=== PATIENT | female | born 1950 | race African-American/Black ===

== ENCOUNTER 2020-03-15 22:02 | Emergency (ER) | payer MEDICARE | END 2020-03-15 23:01 | disposition home or self-care (01) | LOC: ERS 22:02 | DX: R11.2 Nausea with vomiting, unspecified (principal); K21.9 Gastro-esophageal reflux disease without esophagitis; I10 Essential (primary) hypertension; F32.9 Major depressive disorder, single episode, unspecified; F17.210 Nicotine dependence, cigarettes, uncomplicated | CPT/HCPCS: 99284 ==

== ENCOUNTER 2022-02-18 12:45 | Observation (INO) | payer MEDICARE ==
[2022-02-18 16:04] VITALS: BMI 22.1
[2022-02-18] MEDS ORDERED: Acetaminophen 325 MG TAB PO PRN (17:27)
[2022-02-18] MEDS ORDERED: hydrALAZINE 20 MG/ML VIAL SLOW IVP PRN (17:27)
[2022-02-18 18:40] LABS: Troponin I 0.066 ng/mL (< 0.028)
[2022-02-18] MEDS ORDERED: Mirtazapine 15 MG Soltab PO SCH (21:00)
[2022-02-18] MEDS ORDERED: Simvastatin 5 MG TAB PO SCH (21:00)
[2022-02-18 21:02] LABS: Troponin I 0.067 ng/mL (< 0.028)
[2022-02-19] MEDS ORDERED: Ondansetron PF 4 MG/2 ML Vial IVP PRN (01:34)
[2022-02-19 05:47] LABS: #Lymphocytes 1.4 thou/uL (1.20-3.40); #Monocytes 0.4 thou/uL (0.11-0.59); #Neutrophils 4.4 thou/uL (1.40-6.50); %Basophils 0.7 % (0.0-1.0); %Eosinophils 0.4 % (0.0-10.0); %Lymphocytes 22.9 % (21.0-51.0); %Monocytes 6.4 % (0.0-10.0); %Neutrophils 69.5 % (42.0-75.0); Hemoglobin 12.3 g/dL (12.0-16.0); Mean Corpuscular HGB CONC 32.1 g/dL (32.0-36.0); Mean Corpuscular Hemoglobin 30.7 pg (27.0-31.0); Mean Corpuscular Volume 95.8 fL (78.0-98.0); Mean Platelet Volume 6.3 fL (7.4-10.4); Platelet Count 380 thou/uL (130-400); RBC Distribution Width 15.3 % (11.5-14.5); Red Blood Cell (RBC) Count 3.99 mill/uL (4.20-5.40); White Blood Cell (WBC) Count 6.3 thou/uL (4.8-10.8)
[2022-02-19 06:16] LABS: Anion Gap 12 mmol/L (10-20); BUN (Urea Nitrogen) 12 mg/dL (9.8-20.1); Calc. Creatinine Clearance 65 mL/min (70-130); Calcium 8.7 mg/dL (7.8-10.44); Carbon Dioxide 30 mmol/L (23-31); Cardiac Risk 3.3 (Less than 4.5); Chloride 101 mmol/L (98-107); Cholesterol 178 mg/dl (< 200 Desired); Glucose 86 mg/dL (83-110); HDL Cholesterol 54 mg/dL (>60 Neg Risk); LDL Cholesterol, Calculated 109 mg/dL; Sodium 140 mmol/L (136-145); Triglycerides 73 mg/dL (Less than 150)
[2022-02-19 06:22] LABS: Potassium 2.8 mmol/L (3.5-5.1)
[2022-02-19] MEDS: Potassium Chloride 20 MEQ TAB PO SCH ×2 (06:36→12:41)
[2022-02-19] MEDS ORDERED: Electrolyte Replacement Protocol FS PRN (06:45)
[2022-02-19] MEDS ORDERED: Atenolol 25 MG TAB PO SCH (09:00)
[2022-02-19] MEDS ORDERED: Aspirin 81 mg Enteric Coated Tablet PO SCH (09:00)
[2022-02-19] MEDS ORDERED: Enoxaparin Sodium 40 MG/0.4 ML SYRINGE SC SCH (09:00)
[2022-02-19 12:20] VITALS: BP 154/70; TEMP 97.8
[2022-02-19] MEDS ORDERED: Potassium Bicarbonate/Cit Ac 20 MEQ TAB PO SCH (13:00)
[2022-02-19] MEDS ORDERED: Regadenoson 0.4 MG/5 ML SYRINGE ONE (13:32)
[2022-02-19 14:39] LABS: Anion Gap 11 mmol/L (10-20); BUN (Urea Nitrogen) 12 mg/dL (9.8-20.1); Calc. Creatinine Clearance 63 mL/min (70-130); Calcium 8.8 mg/dL (7.8-10.44); Carbon Dioxide 31 mmol/L (23-31); Chloride 102 mmol/L (98-107); Glucose 82 mg/dL (83-110); Potassium 3.4 mmol/L (3.5-5.1); Sodium 141 mmol/L (136-145)
[2022-02-19] MEDS ORDERED: Sodium Chloride 0.9% 1,000 ML IV SCH (15:00)
[2022-02-19] MEDS ORDERED: Potassium Chloride 20 MEQ TAB PO SCH (15:15)
[2022-02-19 15:41] LABS: Magnesium 1.7 mg/dL (1.6-2.6)
== END 2022-02-19 16:38 | disposition home health service (06) ==
LOC: 2SW 12:45
PROVIDERS: ADMIT Internal Medicine; ATTEND Internal Medicine
DX: R55 Syncope and collapse (principal); K21.9 Gastro-esophageal reflux disease without esophagitis; E78.2 Mixed hyperlipidemia; I73.9 Peripheral vascular disease, unspecified; I11.9 Hypertensive heart disease without heart failure; I08.8 Other rheumatic multiple valve diseases; Z66 Do not resuscitate; Z87.891 Personal history of nicotine dependence; Z79.899 Other long term (current) drug therapy
CPT/HCPCS: 78452; 80048 ×2; 80061; 83735; 84484; 85025; 93017; 93306; 93923; A9500; 36415; 96372; 96374; 96375; G0378; J0360; J1650; J2405; J2785; J7050

== ENCOUNTER 2023-03-05 12:50 | Inpatient (IN) | payer MEDICARE ==
[2023-03-05] MEDS ORDERED: Ondansetron ODT 4 MG TAB PO PRN (14:38)
[2023-03-05] MEDS ORDERED: hydrALAZINE 20 MG/ML VIAL SLOW IVP PRN (14:45)
[2023-03-05] MEDS ORDERED: NIFEdipine XL 30 MG TAB PO SCH (15:00)
[2023-03-05] MEDS: Sodium Chloride 0.9% 1,000 ML IV SCH (15:37)
[2023-03-05 16:33] VITALS: BMI 25.1
[2023-03-05 17:51] LABS: CKMB 3.5 ng/mL (0-6.6)
[2023-03-05] MEDS: Simvastatin 5 MG TAB PO SCH ×2 (20:35→20:37)
[2023-03-05] MEDS: Mirtazapine 15 MG Soltab PO SCH ×2 (20:35→20:37)
[2023-03-06] MEDS ORDERED: Nitroglycerin 2% Ointment 1 INCH/1 GM Packet TOP SCH (00:30)
[2023-03-06] MEDS: Sodium Chloride 0.9% 1,000 ML IV SCH ×3 (04:34→18:14)
[2023-03-06 08:27] LABS: #Eosinphils 0.1 thou/uL (0.0-0.7); #Monocytes 0.6 thou/uL (0.11-0.59); #Neutrophils 3.5 thou/uL (1.40-6.50); %Basophils 0.5 % (0.0-1.0); %Eosinophils 0.9 % (0.0-10.0); %Lymphocytes 26.3 % (21.0-51.0); %Monocytes 10.2 % (0.0-10.0); %Neutrophils 61.9 % (42.0-75.0); Hemoglobin 12.7 g/dL (12.0-16.0); Mean Corpuscular Hemoglobin 30.5 pg (27.0-31.0); Mean Corpuscular Volume 89.4 fl (78.0-98.0); Mean Platelet Volume 9.2 fL (7.4-10.4); Platelet Count 372 10x3/uL (130-400); RBC Distribution Width 14.8 % (11.5-14.5); Red Blood Cell (RBC) Count 4.17 mill/uL (4.20-5.40); White Blood Cell (WBC) Count 5.7 10x3/uL (4.8-10.8)
[2023-03-06 08:53] LABS: CK (CPK) 218 U/L (29-168); Magnesium 1.8 mg/dL (1.6-2.6)
[2023-03-06] MEDS: NIFEdipine XL 30 MG TAB PO SCH (09:02)
[2023-03-06] MEDS: Aspirin 81 mg Enteric Coated Tablet PO SCH (09:02)
[2023-03-06 09:22] LABS: Anion Gap 15 mmol/L (10-20); BUN (Urea Nitrogen) 15 mg/dL (9.8-20.1); Calc. Creatinine Clearance 77 mL/min (70-130); Carbon Dioxide 21 mmol/L (23-31); Chloride 104 mmol/L (98-107); Estimated GFR 93; Glucose 73 mg/dL (83-110); Potassium 3.8 mmol/L (3.5-5.1); Sodium 136 mmol/L (136-145)
[2023-03-06 09:50] LABS: CKMB 2.3 ng/mL (0-6.6)
[2023-03-06] MEDS: cefTRIAXone\\ROCEPHIN 1 GM in Sodium Chloride 0.9% 100 ML IVPB SCH (11:16)
[2023-03-06] MEDS: Ondansetron PF 4 MG/2 ML Vial IVP PRN (11:16)
[2023-03-06 17:16] LABS: Troponin I 0.067 ng/mL (< 0.028)
[2023-03-06] MEDS: Simvastatin 5 MG TAB PO SCH (20:18)
[2023-03-06] MEDS: Mirtazapine 15 MG Soltab PO SCH (20:18)
[2023-03-06] MEDS: Acetaminophen 325 MG TAB PO PRN (20:18)
[2023-03-07] MEDS: Sodium Chloride 0.9% 1,000 ML IV SCH ×2 (05:37→17:48)
[2023-03-07 05:46] LABS: #Eosinphils 0.1 thou/uL (0.0-0.7); #Monocytes 0.5 thou/uL (0.11-0.59); #Neutrophils 2.8 thou/uL (1.40-6.50); %Basophils 0.6 % (0.0-1.0); %Eosinophils 1.1 % (0.0-10.0); %Lymphocytes 29.8 % (21.0-51.0); %Monocytes 9.8 % (0.0-10.0); %Neutrophils 58.5 % (42.0-75.0); Hemoglobin 12.7 g/dL (12.0-16.0); Mean Corpuscular HGB CONC 34.2 g/dL (32.0-36.0); Mean Corpuscular Hemoglobin 30.3 pg (27.0-31.0); Mean Corpuscular Volume 88.5 fl (78.0-98.0); Mean Platelet Volume 8.8 fL (7.4-10.4); Platelet Count 383 10x3/uL (130-400); RBC Distribution Width 14.6 % (11.5-14.5); Red Blood Cell (RBC) Count 4.19 mill/uL (4.20-5.40); White Blood Cell (WBC) Count 4.7 10x3/uL (4.8-10.8)
[2023-03-07 06:13] LABS: Anion Gap 14 mmol/L (10-20); BUN (Urea Nitrogen) 7 mg/dL (9.8-20.1); CK (CPK) 197 U/L (29-168); Calc. Creatinine Clearance 85 mL/min (70-130); Carbon Dioxide 21 mmol/L (23-31); Chloride 102 mmol/L (98-107); Estimated GFR 95; Glucose 63 mg/dL (83-110); Potassium 3.3 mmol/L (3.5-5.1); Sodium 134 mmol/L (136-145)
[2023-03-07] MEDS ORDERED: Electrolyte Replacement Protocol 1 EACH FS PRN (08:04)
[2023-03-07] MEDS ORDERED: Electrolyte Replacement Protocol FS PRN (08:30)
[2023-03-07] MEDS ORDERED: Potassium Chloride 20 MEQ TAB PO SCH ×2 (08:30→13:45)
[2023-03-07] MEDS: NIFEdipine XL 30 MG TAB PO SCH (09:15)
[2023-03-07] MEDS: Aspirin 81 mg Enteric Coated Tablet PO SCH (09:15)
[2023-03-07 10:02] LABS: Magnesium 1.8 mg/dL (1.6-2.6)
[2023-03-07] MEDS ORDERED: Magnesium 2 GM/50 ML(in water) 2 GM in Premix Bag 1 BAG IVPB SCH (11:30)
[2023-03-07 13:03] LABS: Potassium 3.3 mmol/L (3.5-5.1)
[2023-03-07] MEDS: cefTRIAXone\\ROCEPHIN 1 GM in Sodium Chloride 0.9% 100 ML IVPB SCH (13:31)
[2023-03-07] MEDS ORDERED: Polyethylene Glycol 3350 17 GM Packet PO PRN (16:30)
[2023-03-07] MEDS: Simvastatin 5 MG TAB PO SCH (20:50)
[2023-03-07] MEDS: Mirtazapine 15 MG Soltab PO SCH (20:50)
[2023-03-08] MEDS: Sodium Chloride 0.9% 1,000 ML IV SCH ×2 (02:57→10:57)
[2023-03-08 05:59] LABS: #Eosinphils 0.1 thou/uL (0.0-0.7); #Monocytes 0.4 thou/uL (0.11-0.59); #Neutrophils 2.4 thou/uL (1.40-6.50); %Basophils 0.9 % (0.0-1.0); %Eosinophils 2.4 % (0.0-10.0); %Lymphocytes 36.4 % (21.0-51.0); %Monocytes 8.4 % (0.0-10.0); %Neutrophils 51.9 % (42.0-75.0); Hemoglobin 12.4 g/dL (12.0-16.0); Mean Corpuscular HGB CONC 34.1 g/dL (32.0-36.0); Mean Corpuscular Volume 88.1 fl (78.0-98.0); Platelet Count 407 10x3/uL (130-400); RBC Distribution Width 14.5 % (11.5-14.5); Red Blood Cell (RBC) Count 4.13 mill/uL (4.20-5.40); White Blood Cell (WBC) Count 4.6 10x3/uL (4.8-10.8)
[2023-03-08 06:23] LABS: Anion Gap 15 mmol/L (10-20); BUN (Urea Nitrogen) 6 mg/dL (9.8-20.1); Calc. Creatinine Clearance 83 mL/min (70-130); Calcium 8.7 mg/dL (7.8-10.44); Carbon Dioxide 20 mmol/L (23-31); Chloride 103 mmol/L (98-107); Estimated GFR 95; Magnesium 1.9 mg/dL (1.6-2.6); Potassium 4.1 mmol/L (3.5-5.1); Sodium 134 mmol/L (136-145)
[2023-03-08 06:25] LABS: Glucose 53 mg/dL (83-110)
[2023-03-08] MEDS ORDERED: Glucagon 1 MG/ML KIT IM PRN (06:32)
[2023-03-08] MEDS ORDERED: Dextrose 5% in Water 1,000 ML IV PRN (06:32)
[2023-03-08] MEDS ORDERED: Dextrose 50% Abboject 50 ML SYRINGE SLOW IVP PRN (06:32)
[2023-03-08] MEDS ORDERED: Magnesium 2 GM/50 ML(in water) 2 GM in Premix Bag 1 BAG IVPB SCH (08:00)
[2023-03-08] MEDS ORDERED: Piperacillin/Tazobactam 3.375 GM in Sodium Chloride 0.9% 100 ML IVPB SCH ×2 (08:45→10:00)
[2023-03-08] MEDS ORDERED: Polyethylene Glycol 3350 17 GM Packet PO PRN (08:46)
[2023-03-08] MEDS: NIFEdipine XL 30 MG TAB PO SCH (08:55)
[2023-03-08] MEDS: Aspirin 81 mg Enteric Coated Tablet PO SCH (08:55)
[2023-03-08] MEDS: Piperacillin/Tazobactam 3.375 GM in Sodium Chloride 0.9% 100 ML IVPB SCH ×2 (14:57→21:26)
[2023-03-08] MEDS: Mirtazapine 15 MG Soltab PO SCH (20:52)
[2023-03-08] MEDS: Simvastatin 5 MG TAB PO SCH (20:52)
[2023-03-09] MEDS: Acetaminophen 325 MG TAB PO PRN (04:16)
[2023-03-09] MEDS: Ondansetron PF 4 MG/2 ML Vial IVP PRN (04:16)
[2023-03-09] MEDS: Piperacillin/Tazobactam 3.375 GM in Sodium Chloride 0.9% 100 ML IVPB SCH ×2 (05:24→13:10)
[2023-03-09 05:32] LABS: #Eosinphils 0.2 thou/uL (0.0-0.7); #Monocytes 0.4 thou/uL (0.11-0.59); #Neutrophils 3.4 thou/uL (1.40-6.50); %Basophils 0.5 % (0.0-1.0); %Monocytes 6.2 % (0.0-10.0); %Neutrophils 59.9 % (42.0-75.0); Mean Corpuscular HGB CONC 33.1 g/dL (32.0-36.0); Mean Corpuscular Hemoglobin 29.6 pg (27.0-31.0); Mean Corpuscular Volume 89.4 fl (78.0-98.0); Mean Platelet Volume 8.7 fL (7.4-10.4); Platelet Count 382 10x3/uL (130-400); RBC Distribution Width 14.5 % (11.5-14.5); Red Blood Cell (RBC) Count 4.05 mill/uL (4.20-5.40); White Blood Cell (WBC) Count 5.6 10x3/uL (4.8-10.8)
[2023-03-09 05:55] LABS: Anion Gap 13 mmol/L (10-20); BUN (Urea Nitrogen) 9 mg/dL (9.8-20.1); Calc. Creatinine Clearance 67 mL/min (70-130); Calcium 8.6 mg/dL (7.8-10.44); Carbon Dioxide 24 mmol/L (23-31); Chloride 102 mmol/L (98-107); Estimated GFR 87; Glucose 105 mg/dL (83-110); Potassium 3.6 mmol/L (3.5-5.1); Sodium 135 mmol/L (136-145)
[2023-03-09] MEDS ORDERED: traMADol HCl 50 MG TAB PO PRN (09:20)
[2023-03-09] MEDS: NIFEdipine XL 30 MG TAB PO SCH (09:40)
[2023-03-09] MEDS: Aspirin 81 mg Enteric Coated Tablet PO SCH (09:41)
[2023-03-09] MEDS: Sodium Chloride 0.9% 1,000 ML IV SCH (13:10)
[2023-03-09 15:52] VITALS: TEMP 98.2
[2023-03-09 16:46] VITALS: BP 155/75
== END 2023-03-09 19:23 | DRG 565 ==
LOC: NEURO 13:40 → OBSVTOIN 14:47
PROVIDERS: ADMIT Internal Medicine; ATTEND Internal Medicine
PROC: 02HV33Z Insertion of Infusion Device into Superior Vena Cava, Percutaneous Approach (ICD-10-PCS; principal; 2023-03-09)
PROC: B5181ZA Fluoroscopy of Superior Vena Cava using Low Osmolar Contrast, Guidance (ICD-10-PCS; 2023-03-09)
PROC: B548ZZA Ultrasonography of Superior Vena Cava, Guidance (ICD-10-PCS; 2023-03-09)
DX: T79.6XXA Traumatic ischemia of muscle, initial encounter (principal); N39.0 Urinary tract infection, site not specified; Z16.24 Resistance to multiple antibiotics; S46.011A Strain of muscle(s) and tendon(s) of the rotator cuff of right shoulder, initial encounter; W06.XXXA Fall from bed, initial encounter; Y92.003 Bedroom of unspecified non-institutional (private) residence as the place of occurrence of the external cause; M19.011 Primary osteoarthritis, right shoulder; K21.9 Gastro-esophageal reflux disease without esophagitis; B96.20 Unspecified Escherichia coli [E. coli] as the cause of diseases classified elsewhere; I10 Essential (primary) hypertension; E78.5 Hyperlipidemia, unspecified; R29.6 Repeated falls; F17.290 Nicotine dependence, other tobacco product, uncomplicated; R77.8 Other specified abnormalities of plasma proteins; E87.6 Hypokalemia; Z91.040 Latex allergy status; Z91.81 History of falling; Z91.199 Patient's noncompliance with other medical treatment and regimen due to unspecified reason; Z79.899 Other long term (current) drug therapy; Z79.82 Long term (current) use of aspirin
CPT/HCPCS: 36415; 36416; 36569; 80048; 82550; 82553; 83735; 83880; 85025; 87077; 87086; 87186; C1751; J0360; J0696; J1650; J2405; J2543; J3475; J3490; J7050

== ENCOUNTER 2023-03-23 14:43 | Inpatient (IN) | payer MEDICARE ==
[2023-03-23 16:22] LABS: Hemoglobin 13.9 g/dL (12.0-16.0); Mean Corpuscular HGB CONC 33.6 g/dL (32.0-36.0); Mean Corpuscular Volume 89.2 fl (78.0-98.0); Platelet Count 464 10x3/uL (130-400); RBC Distribution Width 15.1 % (11.5-14.5); Red Blood Cell (RBC) Count 4.64 mill/uL (4.20-5.40)
[2023-03-23 16:25] LABS: Delete Auto Diff?? YES; Manual Diff?? YES
[2023-03-23 16:40] LABS: ALT (SGPT) Less than 7 U/L (8-55); AST (SGOT) 15 U/L (5-34); Albumin 3.6 g/dL (3.4-4.8); Alkaline Phosphatase 85 U/L (40-110); Anion Gap 20 mmol/L (10-20); BUN (Urea Nitrogen) 48 mg/dL (9.8-20.1); Bilirubin, Total 0.3 mg/dL (0.2-1.2); Calc. Creatinine Clearance 0 mL/min (70-130); Calcium 9.2 mg/dL (7.8-10.44); Carbon Dioxide 23 mmol/L (23-31); Chloride 114 mmol/L (98-107); Estimated GFR 58; Globulin 3.9 g/dL (2.4-3.5); Glucose 133 mg/dL (83-110); Potassium 2.7 mmol/L (3.5-5.1); Protein, Total 7.5 g/dL (5.8-8.1)
[2023-03-23 16:46] LABS: Sodium 154 mmol/L (136-145)
[2023-03-23 16:49] LABS: Anisocytosis SLIGHT = 6-15 cells HPF (0-5); Band 4 % (5-11); Burr Cells MODERATE= 6-15 cells HPF (0-1); CellaVision Operator ID LAB.MJL; Lymphocytes 7 % (21-51); Monocytes 2 % (0-10); Neutrophil 87 % (42-75); Platelet Adequacy Comment Platelets Increased; Poikilocytosis SLIGHT = 6-15 cells HPF (0-5); Reactive Lymphocytes 1 % (0-10); Total Cell Count 120
[2023-03-23] MEDS ORDERED: Potassium Chloride 20 MEQ/100 ML PREMIX BAG ONE (17:15)
[2023-03-23] MEDS ORDERED: Potassium Chloride 20 MEQ TAB ONE (17:15)
[2023-03-23 17:16] LABS: Bilirubin 1+ (Negative); Blood, Urine 1+ (Negative); CAUTI Indications for Culture Alt mental st,lethar; Clarity Turbid (Clear); Glucose, Urine (Dipstick) Normal (Negative); Ketone, Urine Trace mg/dL (Negative); Leukocyte Negative Leu/uL (Negative); Nitrite Negative (Negative); Protein, Urine (Dipstick) 70 mg/dL (Neg-Trace); RBC/HPF 0-3 HPF (0-3); Specific Gravity, Urine 1.028 (1.002-1.036); Squamous Epithelial 0-3 HPF (0-3); WBC/HPF 0-3 HPF (0-3); pH, Urine 5.5 (5.0-9.0)
[2023-03-23 17:25] LABS: Bacteria/HPF 1+ HPF (None Seen)
[2023-03-23 17:26] LABS: Urine Culture Reflex No No
[2023-03-23 17:32] LABS: CKMB 4.6 ng/mL (0-6.6)
[2023-03-23] MEDS ORDERED: Aspirin 325 mg Enteric Coated Tablet PO SCH (18:30)
[2023-03-23] MEDS: Sodium Chloride 0.45% 1,000 ML IV SCH (21:42)
[2023-03-23 22:15] LABS: #Monocytes 0.9 thou/uL (0.11-0.59); %Basophils 0.3 % (0.0-1.0); %Lymphocytes 7.1 % (21.0-51.0); %Neutrophils 86.1 % (42.0-75.0); Hemoglobin 14.6 g/dL (12.0-16.0); Mean Corpuscular HGB CONC 31.4 g/dL (32.0-36.0); Mean Corpuscular Hemoglobin 29.9 pg (27.0-31.0); Mean Platelet Volume 9.6 fL (7.4-10.4); RBC Distribution Width 15.5 % (11.5-14.5); Red Blood Cell (RBC) Count 4.89 mill/uL (4.20-5.40)
[2023-03-23 22:17] LABS: Anion Gap 25 mmol/L (10-20); BUN (Urea Nitrogen) 44 mg/dL (9.8-20.1); Calc. Creatinine Clearance 41 mL/min (70-130); Calcium 9.5 mg/dL (7.8-10.44); Carbon Dioxide 18 mmol/L (23-31); Chloride 116 mmol/L (98-107); Estimated GFR 56; Glucose 113 mg/dL (83-110); Potassium 3.5 mmol/L (3.5-5.1)
[2023-03-23 22:22] LABS: Sodium 155 mmol/L (136-145)
[2023-03-23 22:24] LABS: Mean Corpuscular Volume 95.1 fl (78.0-98.0); Platelet Count 304 10x3/uL (130-400)
[2023-03-23 22:29] LABS: Critical Call Chem Troponin I RESULT DECREASING; Troponin I 0.217 ng/mL (< 0.028)
[2023-03-24 01:19] LABS: Troponin I 0.187 ng/mL (< 0.028)
[2023-03-24] MEDS ORDERED: Aspirin 325 mg Enteric Coated Tablet PO SCH (09:00)
[2023-03-24 09:58] LABS: Anion Gap 21 mmol/L (10-20); BUN (Urea Nitrogen) 35 mg/dL (9.8-20.1); Calc. Creatinine Clearance 56 mL/min (70-130); Calcium 9.3 mg/dL (7.8-10.44); Carbon Dioxide 21 mmol/L (23-31); Cardiac Risk 5.1 (Less than 4.5); Chloride 119 mmol/L (98-107); Cholesterol 200 mg/dl (< 200 Desired); Estimated GFR 80; Glucose 99 mg/dL (83-110); HDL Cholesterol 39 mg/dL (>60 Neg Risk); LDL Cholesterol, Calculated 138 mg/dL; Potassium 3.6 mmol/L (3.5-5.1); Triglycerides 116 mg/dL (Less than 150)
[2023-03-24 10:07] LABS: Sodium 157 mmol/L (136-145)
[2023-03-24] MEDS: Sodium Chloride 0.45% 1,000 ML IV SCH (10:08)
[2023-03-24] MEDS: Dextrose 5% in Water 1,000 ML IV SCH (12:57)
[2023-03-24] MEDS ORDERED: cefTRIAXone\\ROCEPHIN 1 GM in Sodium Chloride 0.9% 100 ML IVPB SCH (14:00)
[2023-03-24] MEDS ORDERED: metroNIDAZOLE 500 MG TAB PO SCH (15:00)
[2023-03-24] MEDS: Potassium Bicarbonate/Cit Ac 20 MEQ TAB PO SCH (15:25)
[2023-03-24] MEDS: metroNIDAZOLE 500 MG in Premix Bag 1 BAG IVPB SCH (21:46)
[2023-03-24] MEDS: Cyanocobalamin (Vitamin B-12) 1,000 MCG TAB PO SCH (21:47)
[2023-03-24] MEDS: Thiamine 100 MG TAB PO SCH (21:47)
[2023-03-24] MEDS: Folic Acid 1 MG TAB PO SCH (21:47)
[2023-03-24 23:16] LABS: Chloride 115 mmol/L (98-107); Potassium 3.2 mmol/L (3.5-5.1)
[2023-03-24 23:17] LABS: Glucose 97 mg/dL (83-110)
[2023-03-24 23:19] LABS: Anion Gap 19 mmol/L (10-20); Carbon Dioxide 21 mmol/L (23-31)
[2023-03-24 23:20] LABS: Calc. Creatinine Clearance 65 mL/min (70-130); Estimated GFR 92
[2023-03-24 23:21] LABS: BUN (Urea Nitrogen) 22 mg/dL (9.8-20.1)
[2023-03-24 23:27] LABS: Sodium 152 mmol/L (136-145)
[2023-03-25] MEDS: metroNIDAZOLE 500 MG in Premix Bag 1 BAG IVPB SCH (05:56)
[2023-03-25] MEDS ORDERED: NIFEdipine XL 30 MG TAB PO SCH (09:00)
[2023-03-25] MEDS: Aspirin 81 mg Enteric Coated Tablet PO SCH (09:09)
[2023-03-25] MEDS: Potassium Bicarbonate/Cit Ac 20 MEQ TAB PO SCH (09:09)
[2023-03-25] MEDS: Multivit, Therapeutic 1 TAB PO SCH (09:10)
[2023-03-25] MEDS: Heparin 5,000 UNITS/ML VIAL SC SCH ×2 (09:10→21:12)
[2023-03-25] MEDS ORDERED: Ondansetron ODT 4 MG TAB PO PRN (09:22)
[2023-03-25] MEDS ORDERED: Ondansetron PF 4 MG/2 ML Vial IVP PRN (09:22)
[2023-03-25] MEDS ORDERED: Vancomycin 1 GM in Premix Bag 1 BAG IVPB SCH (12:30)
[2023-03-25] MEDS ORDERED: Vancomycin 1.5 GRAM/300 ML BAG 1.5 GM in Premix Bag 1 BAG IVPB SCH (13:00)
[2023-03-25] MEDS ORDERED: Meropenem 1 GM in Sodium Chloride 0.9% 100 ML IVPB SCH ×2 (13:00→22:00)
[2023-03-25 14:27] LABS: #Basophils 0.1 thou/uL (0.0-0.2); #Monocytes 0.8 thou/uL (0.11-0.59); #Neutrophils 10.6 thou/uL (1.40-6.50); %Basophils 0.4 % (0.0-1.0); %Eosinophils 0.2 % (0.0-10.0); %Lymphocytes 13.9 % (21.0-51.0); %Monocytes 6.1 % (0.0-10.0); %Neutrophils 78.5 % (42.0-75.0); Mean Corpuscular HGB CONC 30.9 g/dL (32.0-36.0); Mean Corpuscular Hemoglobin 29.7 pg (27.0-31.0); Mean Platelet Volume 9.4 fL (7.4-10.4); Platelet Count 289 10x3/uL (130-400); RBC Distribution Width 15.4 % (11.5-14.5); Red Blood Cell (RBC) Count 4.72 mill/uL (4.20-5.40); White Blood Cell (WBC) Count 13.5 10x3/uL (4.8-10.8)
[2023-03-25 14:48] LABS: ALT (SGPT) Less than 7 U/L (8-55); AST (SGOT) 18 U/L (5-34); Albumin 3.4 g/dL (3.4-4.8); Alkaline Phosphatase 98 U/L (40-110); Anion Gap 19 mmol/L (10-20); BUN (Urea Nitrogen) 17 mg/dL (9.8-20.1); Bilirubin, Total 0.3 mg/dL (0.2-1.2); CRP (Inflammatory) 7.61 mg/dL (= or < 0.5); Calc. Creatinine Clearance 74 mL/min (70-130); Calcium 9.1 mg/dL (7.8-10.44); Carbon Dioxide 21 mmol/L (23-31); Chloride 113 mmol/L (98-107); Estimated GFR 94; Globulin 3.8 g/dL (2.4-3.5); Glucose 81 mg/dL (83-110); Magnesium 1.9 mg/dL (1.6-2.6); Potassium 3.3 mmol/L (3.5-5.1); Protein, Total 7.2 g/dL (5.8-8.1); Sodium 150 mmol/L (136-145)
[2023-03-25] MEDS: Dextrose 5% in Water 1,000 ML IV SCH (16:56)
[2023-03-25] MEDS ORDERED: Potassium Chloride 40 MEQ in Dextrose 5% in Water 1,000 ML IV SCH (20:45)
[2023-03-25] MEDS ORDERED: Vancomycin HCl 750 MG in Sodium Chloride 0.9% 250 ML 250 ML IVPB SCH (21:00)
[2023-03-25] MEDS: CEFAZOLIN 2 GM in Sodium Chloride 0.9% 100 ML IVPB SCH ×2 (21:11→21:15)
[2023-03-25] MEDS: NIFEdipine XL 30 MG TAB PO SCH (21:14)
[2023-03-25] MEDS: Cyanocobalamin (Vitamin B-12) 1,000 MCG TAB PO SCH (23:33)
[2023-03-25] MEDS: Folic Acid 1 MG TAB PO SCH (23:33)
[2023-03-25] MEDS: Thiamine 100 MG TAB PO SCH (23:33)
[2023-03-26] MEDS: hydrALAZINE 20 MG/ML VIAL SLOW IVP PRN (00:55)
[2023-03-26] MEDS: CEFAZOLIN 2 GM in Sodium Chloride 0.9% 100 ML IVPB SCH ×3 (05:02→20:17)
[2023-03-26 09:47] LABS: #Neutrophils 8.5 thou/uL (1.40-6.50); %Basophils 0.3 % (0.0-1.0); %Eosinophils 0.3 % (0.0-10.0); %Lymphocytes 17.6 % (21.0-51.0); %Monocytes 8.1 % (0.0-10.0); %Neutrophils 72.7 % (42.0-75.0); Hemoglobin 15.4 g/dL (12.0-16.0); Mean Corpuscular HGB CONC 32.2 g/dL (32.0-36.0); Mean Corpuscular Hemoglobin 29.7 pg (27.0-31.0); Mean Platelet Volume 10.7 fL (7.4-10.4); Platelet Count 234 10x3/uL (130-400); RBC Distribution Width 15.4 % (11.5-14.5); Red Blood Cell (RBC) Count 5.19 mill/uL (4.20-5.40); White Blood Cell (WBC) Count 11.7 10x3/uL (4.8-10.8)
[2023-03-26 09:57] LABS: Mean Corpuscular Volume 92.3 fl (78.0-98.0)
[2023-03-26 11:10] LABS: Anion Gap 22 mmol/L (10-20); BUN (Urea Nitrogen) 11 mg/dL (9.8-20.1); Calc. Creatinine Clearance 67 mL/min (70-130); Calcium 8.5 mg/dL (7.8-10.44); Carbon Dioxide 16 mmol/L (23-31); Chloride 111 mmol/L (98-107); Estimated GFR 92; Glucose 88 mg/dL (83-110); Potassium 4.3 mmol/L (3.5-5.1); Sodium 145 mmol/L (136-145)
[2023-03-26] MEDS: Aspirin 81 mg Enteric Coated Tablet PO SCH (12:40)
[2023-03-26] MEDS: NIFEdipine XL 30 MG TAB PO SCH ×2 (12:41→20:18)
[2023-03-26] MEDS: Multivit, Therapeutic 1 TAB PO SCH (12:41)
[2023-03-26] MEDS: Heparin 5,000 UNITS/ML VIAL SC SCH ×2 (14:07→20:18)
[2023-03-26] MEDS: Cyanocobalamin (Vitamin B-12) 1,000 MCG TAB PO SCH (20:18)
[2023-03-26] MEDS: Thiamine 100 MG TAB PO SCH (20:18)
[2023-03-26] MEDS: Folic Acid 1 MG TAB PO SCH (20:18)
[2023-03-27] MEDS: CEFAZOLIN 2 GM in Sodium Chloride 0.9% 100 ML IVPB SCH ×3 (05:55→21:36)
[2023-03-27] MEDS: Heparin 5,000 UNITS/ML VIAL SC SCH (09:33)
[2023-03-27] MEDS: Aspirin 81 mg Enteric Coated Tablet PO SCH (09:34)
[2023-03-27] MEDS: NIFEdipine XL 30 MG TAB PO SCH (09:34)
[2023-03-27] MEDS: Multivit, Therapeutic 1 TAB PO SCH (09:34)
[2023-03-27] MEDS ORDERED: Pantoprazole 40 MG VIAL IVP SCH (09:45)
[2023-03-27] MEDS ORDERED: Sodium Chloride 0.9% 500 ML IV SCH (09:45)
[2023-03-27 10:34] LABS: #Monocytes 0.7 thou/uL (0.11-0.59); #Neutrophils 8.1 thou/uL (1.40-6.50); %Basophils 0.2 % (0.0-1.0); %Lymphocytes 12.6 % (21.0-51.0); %Monocytes 6.5 % (0.0-10.0); %Neutrophils 78.9 % (42.0-75.0); Mean Corpuscular HGB CONC 33.8 g/dL (32.0-36.0); Mean Corpuscular Hemoglobin 29.9 pg (27.0-31.0); Mean Corpuscular Volume 88.4 fl (78.0-98.0); Mean Platelet Volume 10.7 fL (7.4-10.4); Platelet Count 307 10x3/uL (130-400); Red Blood Cell (RBC) Count 4.15 mill/uL (4.20-5.40); White Blood Cell (WBC) Count 10.3 10x3/uL (4.8-10.8)
[2023-03-27 10:38] LABS: Hemoglobin 12.4 g/dL (12.0-16.0)
[2023-03-27 10:41] LABS: Anion Gap 20 mmol/L (10-20); BUN (Urea Nitrogen) 24 mg/dL (9.8-20.1); Calc. Creatinine Clearance 55 mL/min (70-130); Calcium 8.2 mg/dL (7.8-10.44); Carbon Dioxide 19 mmol/L (23-31); Chloride 110 mmol/L (98-107); Estimated GFR 72; Glucose 112 mg/dL (83-110); Potassium 3.6 mmol/L (3.5-5.1); Sodium 145 mmol/L (136-145)
[2023-03-27] MEDS: Sodium Chloride 0.9% 1,000 ML IV SCH ×2 (12:35→21:36)
[2023-03-27 16:13] LABS: Hemoglobin 12.8 g/dL (12.0-16.0)
[2023-03-27] MEDS: Cyanocobalamin (Vitamin B-12) 1,000 MCG TAB PO SCH (21:23)
[2023-03-27] MEDS: Folic Acid 1 MG TAB PO SCH (21:23)
[2023-03-27] MEDS: Thiamine 100 MG TAB PO SCH (21:23)
[2023-03-27] MEDS: Pantoprazole 40 MG VIAL IVP SCH (21:23)
[2023-03-28] MEDS: CEFAZOLIN 2 GM in Sodium Chloride 0.9% 100 ML IVPB SCH ×3 (06:20→21:01)
[2023-03-28] MEDS ORDERED: Ondansetron PF 4 MG/2 ML Vial IVP SCH (08:30)
[2023-03-28] MEDS: Pantoprazole 40 MG VIAL IVP SCH ×2 (08:56→21:12)
[2023-03-28] MEDS: Sodium Chloride 0.9% 1,000 ML IV SCH (08:57)
[2023-03-28] MEDS ORDERED: Lidocaine 1% PF 5 ML VIAL ONE (12:26)
[2023-03-28] MEDS ORDERED: Succinylcholine 200 MG/10 ml SYRINGE FS ONE (12:26)
[2023-03-28] MEDS ORDERED: Ondansetron PF 4 MG/2 ML Vial ONE (12:26)
[2023-03-28] MEDS ORDERED: PROPOFOL 200 MG/20 ML VIAL ONE (12:26)
[2023-03-28] MEDS ORDERED: Labetalol HCl 100 MG/20 ML VIAL ONE (12:26)
[2023-03-28] MEDS ORDERED: Ondansetron HCl/PF 4 MG/2 ML Vial IVP PRN (13:32)
[2023-03-28] MEDS: Multivit, Therapeutic 1 TAB PO SCH (14:31)
[2023-03-28 16:49] LABS: #Neutrophils 8.9 thou/uL (1.40-6.50); %Basophils 0.3 % (0.0-1.0); %Eosinophils 0.1 % (0.0-10.0); %Lymphocytes 12.2 % (21.0-51.0); %Monocytes 8.8 % (0.0-10.0); %Neutrophils 77.5 % (42.0-75.0); Hemoglobin 11.5 g/dL (12.0-16.0); Mean Corpuscular Volume 90.9 fl (78.0-98.0); Mean Platelet Volume 11.1 fL (7.4-10.4); Platelet Count 142 10x3/uL (130-400); RBC Distribution Width 15.5 % (11.5-14.5); Red Blood Cell (RBC) Count 3.83 mill/uL (4.20-5.40); White Blood Cell (WBC) Count 11.4 10x3/uL (4.8-10.8)
[2023-03-28 17:04] LABS: Anion Gap 20 mmol/L (10-20); BUN (Urea Nitrogen) 27 mg/dL (9.8-20.1); Calc. Creatinine Clearance 67 mL/min (70-130); Calcium 8.4 mg/dL (7.8-10.44); Carbon Dioxide 18 mmol/L (23-31); Chloride 116 mmol/L (98-107); Estimated GFR 91; Glucose 76 mg/dL (83-110); Potassium 3.2 mmol/L (3.5-5.1)
[2023-03-28] MEDS: hydrALAZINE 20 MG/ML VIAL SLOW IVP PRN (17:14)
[2023-03-28 19:03] LABS: Sodium 151 mmol/L (136-145)
[2023-03-28] MEDS ORDERED: Potassium Chloride 20 MEQ TAB PO SCH (20:00)
[2023-03-28] MEDS ORDERED: Potassium Bicarbonate/Cit Ac 20 MEQ TAB PO SCH (20:30)
[2023-03-28] MEDS: Dextrose 5 %-0.45 % NaCl 1,000 ML IV SCH (20:57)
[2023-03-28] MEDS: Folic Acid 1 MG TAB PO SCH (21:09)
[2023-03-28] MEDS: Cyanocobalamin (Vitamin B-12) 1,000 MCG TAB PO SCH (21:09)
[2023-03-28] MEDS: Thiamine 100 MG TAB PO SCH (21:10)
[2023-03-28] MEDS ORDERED: Electrolyte Replacement Protocol 1 EACH FS SCH (22:00)
[2023-03-28] MEDS: Potassium Chloride 20 MEQ in Premix Bag 1 BAG IVPB SCH (23:54)
[2023-03-29] MEDS: Potassium Chloride 20 MEQ in Premix Bag 1 BAG IVPB SCH ×2 (02:08→22:52)
[2023-03-29] MEDS: CEFAZOLIN 2 GM in Sodium Chloride 0.9% 100 ML IVPB SCH ×3 (05:30→20:58)
[2023-03-29] MEDS ORDERED: Potassium Bicarbonate/Cit Ac 20 MEQ TAB PO SCH (08:00)
[2023-03-29] MEDS: Pantoprazole 40 MG VIAL IVP SCH ×2 (09:02→20:55)
[2023-03-29] MEDS: Multivit, Therapeutic 1 TAB PO SCH (09:02)
[2023-03-29] MEDS: Dextrose 5 %-0.45 % NaCl 1,000 ML IV SCH (15:45)
[2023-03-29 17:36] LABS: #Basophils 0.1 thou/uL (0.0-0.2); #Eosinphils 0.1 thou/uL (0.0-0.7); #Monocytes 1.5 thou/uL (0.11-0.59); #Neutrophils 5.8 thou/uL (1.40-6.50); %Basophils 0.6 % (0.0-1.0); %Eosinophils 0.5 % (0.0-10.0); %Lymphocytes 21.9 % (21.0-51.0); %Monocytes 15.3 % (0.0-10.0); %Neutrophils 60.2 % (42.0-75.0); Hemoglobin 10.6 g/dL (12.0-16.0); Mean Corpuscular HGB CONC 30.9 g/dL (32.0-36.0); Mean Corpuscular Hemoglobin 29.9 pg (27.0-31.0); Mean Corpuscular Volume 96.6 fl (78.0-98.0); Mean Platelet Volume 10.4 fL (7.4-10.4); Platelet Count 178 10x3/uL (130-400); Red Blood Cell (RBC) Count 3.55 mill/uL (4.20-5.40); White Blood Cell (WBC) Count 9.6 10x3/uL (4.8-10.8)
[2023-03-29 18:59] LABS: Anion Gap 17 mmol/L (10-20); BUN (Urea Nitrogen) 10 mg/dL (9.8-20.1); Calc. Creatinine Clearance 74 mL/min (70-130); Calcium 8.2 mg/dL (7.8-10.44); Carbon Dioxide 22 mmol/L (23-31); Chloride 109 mmol/L (98-107); Estimated GFR 94; Glucose 75 mg/dL (83-110); Sodium 145 mmol/L (136-145)
[2023-03-29] MEDS: Thiamine 100 MG TAB PO SCH (20:54)
[2023-03-29] MEDS: Folic Acid 1 MG TAB PO SCH (20:54)
[2023-03-29] MEDS: Cyanocobalamin (Vitamin B-12) 1,000 MCG TAB PO SCH (20:54)
[2023-03-29 22:16] LABS: Magnesium 1.5 mg/dL (1.6-2.6)
[2023-03-29 22:19] LABS: Phosphorus 1.5 mg/dL (2.3-4.7)
[2023-03-29] MEDS ORDERED: Magnesium 2 GM/50 ML(in water) 2 GM in Premix Bag 1 BAG IVPB SCH (22:30)
[2023-03-29] MEDS ORDERED: PHOS-NAK 1 PKT PACK PO SCH (22:30)
[2023-03-29] MEDS ORDERED: Potassium Phosphate 22 MMOL in Sodium Chloride 0.9% 250 ML 250 ML IVPB SCH (23:15)
[2023-03-30] MEDS: Potassium Chloride 20 MEQ in Premix Bag 1 BAG IVPB SCH (01:09)
[2023-03-30 04:34] LABS: #Eosinphils 0.1 thou/uL (0.0-0.7); #Monocytes 0.9 thou/uL (0.11-0.59); #Neutrophils 5.4 thou/uL (1.40-6.50); %Basophils 0.2 % (0.0-1.0); %Eosinophils 0.9 % (0.0-10.0); %Lymphocytes 23.2 % (21.0-51.0); %Monocytes 10.2 % (0.0-10.0); %Neutrophils 64.4 % (42.0-75.0); Hemoglobin 10.2 g/dL (12.0-16.0); Mean Corpuscular Volume 93.8 fl (78.0-98.0); Mean Platelet Volume 10.9 fL (7.4-10.4); Platelet Count 188 10x3/uL (130-400); RBC Distribution Width 15.9 % (11.5-14.5); White Blood Cell (WBC) Count 8.4 10x3/uL (4.8-10.8)
[2023-03-30 05:01] LABS: Calcium 7.8 mg/dL (7.8-10.44); Chloride 104 mmol/L (98-107); Potassium 3.8 mmol/L (3.5-5.1); Sodium 138 mmol/L (136-145)
[2023-03-30 05:57] LABS: Glucose 59 mg/dL (83-110)
[2023-03-30 05:59] LABS: Carbon Dioxide 16 mmol/L (23-31)
[2023-03-30 06:01] LABS: Calc. Creatinine Clearance 78 mL/min (70-130); Estimated GFR 96
[2023-03-30] MEDS: CEFAZOLIN 2 GM in Sodium Chloride 0.9% 100 ML IVPB SCH ×3 (06:01→21:43)
[2023-03-30 06:02] LABS: BUN (Urea Nitrogen) 6 mg/dL (9.8-20.1)
[2023-03-30 06:20] LABS: Anion Gap 22 mmol/L (10-20)
[2023-03-30] MEDS: Multivit, Therapeutic 1 TAB PO SCH (09:22)
[2023-03-30] MEDS: Pantoprazole 40 MG VIAL IVP SCH ×2 (09:22→21:44)
[2023-03-30] MEDS: Dextrose 5 %-0.45 % NaCl 1,000 ML IV SCH (13:43)
[2023-03-30] MEDS ORDERED: PROPOFOL 200 MG/20 ML VIAL ONE (15:00)
[2023-03-30] MEDS: Cyanocobalamin (Vitamin B-12) 1,000 MCG TAB PO SCH (21:45)
[2023-03-30] MEDS: Folic Acid 1 MG TAB PO SCH (21:45)
[2023-03-30] MEDS: Thiamine 100 MG TAB PO SCH (21:45)
[2023-03-30] MEDS ORDERED: Glucagon 1 MG/ML KIT IM PRN (22:27)
[2023-03-30] MEDS ORDERED: Dextrose 5% in Water 1,000 ML IV PRN (22:27)
[2023-03-30 22:28] LABS: Glucose 52 mg/dL (83-110)
[2023-03-30] MEDS: Dextrose 50% Abboject 50 ML SYRINGE SLOW IVP PRN (22:57)
[2023-03-31] MEDS: Dextrose 50% Abboject 50 ML SYRINGE SLOW IVP PRN (00:40)
[2023-03-31] MEDS ORDERED: Dextrose 5% in Water 1,000 ML IV SCH (00:45)
[2023-03-31 05:07] LABS: Anion Gap 18 mmol/L (10-20); BUN (Urea Nitrogen) 5 mg/dL (9.8-20.1); Calc. Creatinine Clearance 73 mL/min (70-130); Calcium 7.6 mg/dL (7.8-10.44); Carbon Dioxide 21 mmol/L (23-31); Chloride 99 mmol/L (98-107); Estimated GFR 94; Glucose 119 mg/dL (83-110); Magnesium 1.4 mg/dL (1.6-2.6); Sodium 135 mmol/L (136-145)
[2023-03-31 05:12] LABS: Potassium 2.5 mmol/L (3.5-5.1)
[2023-03-31 05:18] LABS: Phosphorus 1.6 mg/dL (2.3-4.7)
[2023-03-31 05:48] LABS: Mean Corpuscular HGB CONC 34.6 g/dL (32.0-36.0); Mean Corpuscular Hemoglobin 29.8 pg (27.0-31.0); Mean Corpuscular Volume 86.2 fl (78.0-98.0); Mean Platelet Volume 12.5 fL (7.4-10.4); Platelet Count 143 10x3/uL (130-400); RBC Distribution Width 15.3 % (11.5-14.5); Red Blood Cell (RBC) Count 3.69 mill/uL (4.20-5.40); White Blood Cell (WBC) Count 7.5 10x3/uL (4.8-10.8)
[2023-03-31] MEDS: CEFAZOLIN 2 GM in Sodium Chloride 0.9% 100 ML IVPB SCH ×3 (06:04→21:34)
[2023-03-31 06:46] LABS: Delete Auto Diff?? YES; Manual Diff?? YES
[2023-03-31 07:20] LABS: Band 4 % (5-11); Eosinophils 3 % (0-10); Lymphocytes 16 % (21-51); Monocytes 9 % (0-10); Neutrophil 68 % (42-75)
[2023-03-31] MEDS ORDERED: Magnesium Sulfate In Water 4 GM in Premix Bag 1 BAG IVPB SCH (08:00)
[2023-03-31] MEDS ORDERED: Potassium Chloride 20 MEQ TAB PO SCH (08:00)
[2023-03-31] MEDS ORDERED: PHOS-NAK 1 PKT PACK PO SCH (08:00)
[2023-03-31] MEDS: Multivit, Therapeutic 1 TAB PO SCH (08:29)
[2023-03-31] MEDS: Dextrose 5 %-0.45 % NaCl 1,000 ML IV SCH (09:53)
[2023-03-31] MEDS: Pantoprazole 40 MG VIAL IVP SCH ×2 (09:54→20:05)
[2023-03-31] MEDS: Potassium Chloride 20 MEQ in Premix Bag 1 BAG IVPB SCH ×4 (09:54→19:51)
[2023-03-31] MEDS: Folic Acid 1 MG TAB PO SCH (20:07)
[2023-03-31] MEDS: Cyanocobalamin (Vitamin B-12) 1,000 MCG TAB PO SCH (20:07)
[2023-03-31] MEDS: Thiamine 100 MG TAB PO SCH (20:08)
[2023-04-01] MEDS: CEFAZOLIN 2 GM in Sodium Chloride 0.9% 100 ML IVPB SCH ×3 (05:15→21:23)
[2023-04-01] MEDS: Dextrose 5 %-0.45 % NaCl 1,000 ML IV SCH (05:15)
[2023-04-01 05:43] LABS: Anion Gap 13 mmol/L (10-20); BUN (Urea Nitrogen) 5 mg/dL (9.8-20.1); Calc. Creatinine Clearance 77 mL/min (70-130); Calcium 7.8 mg/dL (7.8-10.44); Carbon Dioxide 25 mmol/L (23-31); Chloride 101 mmol/L (98-107); Estimated GFR 95; Glucose 89 mg/dL (83-110); Potassium 3.7 mmol/L (3.5-5.1); Sodium 135 mmol/L (136-145)
[2023-04-01 07:30] LABS: #Eosinphils 0.1 thou/uL (0.0-0.7); #Monocytes 0.7 thou/uL (0.11-0.59); #Neutrophils 3.3 thou/uL (1.40-6.50); %Basophils 0.3 % (0.0-1.0); %Lymphocytes 29.5 % (21.0-51.0); %Neutrophils 56.5 % (42.0-75.0); Hemoglobin 9.6 g/dL (12.0-16.0); Mean Corpuscular HGB CONC 33.8 g/dL (32.0-36.0); Mean Corpuscular Hemoglobin 30.4 pg (27.0-31.0); Mean Corpuscular Volume 89.9 fl (78.0-98.0); Mean Platelet Volume 10.1 fL (7.4-10.4); Platelet Count 219 10x3/uL (130-400); RBC Distribution Width 15.9 % (11.5-14.5); Red Blood Cell (RBC) Count 3.16 mill/uL (4.20-5.40); White Blood Cell (WBC) Count 5.8 10x3/uL (4.8-10.8)
[2023-04-01] MEDS: Multivit, Therapeutic 1 TAB PO SCH (10:01)
[2023-04-01] MEDS: Pantoprazole 40 MG VIAL IVP SCH ×2 (10:04→21:23)
[2023-04-01] MEDS: Dextrose 50% Abboject 50 ML SYRINGE SLOW IVP PRN (17:06)
[2023-04-01] MEDS: Folic Acid 1 MG TAB PO SCH (20:58)
[2023-04-01] MEDS: Thiamine 100 MG TAB PO SCH (20:58)
[2023-04-01] MEDS: Cyanocobalamin (Vitamin B-12) 1,000 MCG TAB PO SCH (20:58)
[2023-04-02] MEDS: Dextrose 5 %-0.45 % NaCl 1,000 ML IV SCH (03:09)
[2023-04-02] MEDS: CEFAZOLIN 2 GM in Sodium Chloride 0.9% 100 ML IVPB SCH ×3 (05:10→21:13)
[2023-04-02] MEDS: Pantoprazole 40 MG VIAL IVP SCH ×2 (08:23→20:13)
[2023-04-02] MEDS: Multivit, Therapeutic 1 TAB PO SCH ×2 (08:23→08:34)
[2023-04-02 15:28] VITALS: BMI 23.4
[2023-04-02] MEDS: Megestrol Acetate 40 MG TAB PO SCH (20:11)
[2023-04-02] MEDS: Thiamine 100 MG TAB PO SCH (20:13)
[2023-04-02] MEDS: Mirtazapine 15 MG Soltab PO SCH (20:13)
[2023-04-02] MEDS: Folic Acid 1 MG TAB PO SCH (20:13)
[2023-04-02] MEDS: Cyanocobalamin (Vitamin B-12) 1,000 MCG TAB PO SCH (20:13)
[2023-04-02] MEDS: Simvastatin 5 MG TAB PO SCH (20:13)
[2023-04-02] MEDS: Dextrose 50% Abboject 50 ML SYRINGE SLOW IVP PRN (21:14)
[2023-04-02] MEDS ORDERED: Dextrose 10% in Water 1,000 ML IV SCH (22:00)
[2023-04-03] MEDS: Dextrose 5 %-0.45 % NaCl 1,000 ML IV SCH ×3 (02:32→20:46)
[2023-04-03] MEDS: CEFAZOLIN 2 GM in Sodium Chloride 0.9% 100 ML IVPB SCH ×3 (05:40→23:08)
[2023-04-03] MEDS: Losartan 25 MG TAB PO SCH ×2 (10:41→10:50)
[2023-04-03] MEDS: Multivit, Therapeutic 1 TAB PO SCH ×2 (10:41→10:51)
[2023-04-03] MEDS: Megestrol Acetate 40 MG TAB PO SCH ×3 (10:42→23:00)
[2023-04-03] MEDS: Pantoprazole 40 MG VIAL IVP SCH ×2 (10:42→23:07)
[2023-04-03] MEDS: Mirtazapine 15 MG Soltab PO SCH (23:00)
[2023-04-03] MEDS: Folic Acid 1 MG TAB PO SCH (23:00)
[2023-04-03] MEDS: Cyanocobalamin (Vitamin B-12) 1,000 MCG TAB PO SCH (23:00)
[2023-04-03] MEDS: Simvastatin 5 MG TAB PO SCH (23:01)
[2023-04-03] MEDS: Thiamine 100 MG TAB PO SCH (23:01)
[2023-04-04] MEDS: CEFAZOLIN 2 GM in Sodium Chloride 0.9% 100 ML IVPB SCH ×2 (06:14→14:55)
[2023-04-04] MEDS ORDERED: PROPOFOL 20 ML ONE (07:29)
[2023-04-04] MEDS ORDERED: GLYCOPYRROLATE/PF 0.2 MG/ML VIAL ONE (07:29)
[2023-04-04] MEDS: Losartan 25 MG TAB PO SCH (09:15)
[2023-04-04] MEDS: Multivit, Therapeutic 1 TAB PO SCH (09:15)
[2023-04-04] MEDS: Pantoprazole 40 MG VIAL IVP SCH (09:15)
[2023-04-04] MEDS: Megestrol Acetate 40 MG TAB PO SCH (09:15)
[2023-04-04 12:13] VITALS: BP 137/68; TEMP 98.4
== END 2023-04-04 17:03 | DRG 871 ==
LOC: ERS 14:43 → ERHOLD 18:26 → 2NO 20:50 → OBSVTOIN 03-24 09:07
PROVIDERS: ADMIT Hospitalist; ATTEND Internal Medicine
PROC: 3E03329 Introduction of Other Anti-infective into Peripheral Vein, Percutaneous Approach (ICD-10-PCS; 2023-03-24)
PROC: 0DJ08ZZ Inspection of Upper Intestinal Tract, Via Natural or Artificial Opening Endoscopic (ICD-10-PCS; 2023-03-28)
PROC: 02HV33Z Insertion of Infusion Device into Superior Vena Cava, Percutaneous Approach (ICD-10-PCS; principal; 2023-03-31)
PROC: B548ZZA Ultrasonography of Superior Vena Cava, Guidance (ICD-10-PCS; 2023-03-31)
PROC: B5181ZA Fluoroscopy of Superior Vena Cava using Low Osmolar Contrast, Guidance (ICD-10-PCS; 2023-03-31)
DX: A41.01 Sepsis due to Methicillin susceptible Staphylococcus aureus (principal); G93.41 Metabolic encephalopathy; K29.71 Gastritis, unspecified, with bleeding; K25.4 Chronic or unspecified gastric ulcer with hemorrhage; Z66 Do not resuscitate; E87.0 Hyperosmolality and hypernatremia; N39.0 Urinary tract infection, site not specified; K31.1 Adult hypertrophic pyloric stenosis; D62 Acute posthemorrhagic anemia; R65.20 Severe sepsis without septic shock; I10 Essential (primary) hypertension; E87.6 Hypokalemia; E78.2 Mixed hyperlipidemia; E86.0 Dehydration; R53.81 Other malaise; E83.42 Hypomagnesemia; Z91.040 Latex allergy status; Z79.82 Long term (current) use of aspirin; Z98.890 Other specified postprocedural states; Z88.7 Allergy status to serum and vaccine; Z79.899 Other long term (current) drug therapy
CPT/HCPCS: 36415; 36416; 36569; 51701; 71045; 74176; 80048; 80053; 80061; 81001; 82553; 82941; 83735; 84100; 84484; 85025; 86140; 87040; 87077; 87086; 87149; 87186; 93005; 93306; 94760; 96365; 96366; C1751; C9113; G0378; J0360; J0696; J1611; J1644; J1650; J2185; J2405; J2704; J3370; J3475; J3480; J3490; J7030; J7042; J7050; J7070; J7999; S0179

== ENCOUNTER 2023-04-06 14:55 | Emergency (ER) | payer MEDICARE, SELFPAY ==
[2023-04-06] MEDS ORDERED: Potassium Chloride 20 MEQ/100 ML PREMIX BAG ONE (15:22)
[2023-04-06 15:46] LABS: Bacteria/HPF None Seen HPF (None Seen); Bilirubin Negative (Negative); Blood, Urine 2+ (Negative); CAUTI Indications for Culture Alt mental st,lethar; Clarity Clear (Clear); Glucose, Urine (Dipstick) Normal (Negative); Ketone, Urine 60 mg/dL (Negative); Leukocyte Negative Leu/uL (Negative); Nitrite Negative (Negative); Protein, Urine (Dipstick) 30 mg/dL (Neg-Trace); Specific Gravity, Urine 1.028 (1.002-1.036); Squamous Epithelial 0-3 HPF (0-3); Urobilinogen Normal mg/dL (Less than 2); WBC/HPF 0-3 HPF (0-3); Yeast-Budding 1+ HPF (None Seen)
[2023-04-06 15:58] LABS: Urine Culture Reflex No No
[2023-04-06 16:21] LABS: #Monocytes 0.5 thou/uL (0.11-0.59); #Neutrophils 3.3 thou/uL (1.40-6.50); %Basophils 0.4 % (0.0-1.0); %Eosinophils 0.4 % (0.0-10.0); %Lymphocytes 21.2 % (21.0-51.0); %Neutrophils 67.4 % (42.0-75.0); Hemoglobin 9.9 g/dL (12.0-16.0); Mean Corpuscular HGB CONC 34.7 g/dL (32.0-36.0); Mean Corpuscular Hemoglobin 29.9 pg (27.0-31.0); Mean Corpuscular Volume 86.1 fl (78.0-98.0); Mean Platelet Volume 9.3 fL (7.4-10.4); Platelet Count 289 10x3/uL (130-400); RBC Distribution Width 15.6 % (11.5-14.5); Red Blood Cell (RBC) Count 3.31 mill/uL (4.20-5.40); White Blood Cell (WBC) Count 4.8 10x3/uL (4.8-10.8)
[2023-04-06 17:09] LABS: CKMB 1.5 ng/mL (0-6.6)
[2023-04-06 19:05] LABS: Albumin 2.6 g/dL (3.4-4.8)
[2023-04-06 19:06] LABS: Chloride 100 mmol/L (98-107); Potassium 3.4 mmol/L (3.5-5.1); Sodium 133 mmol/L (136-145)
[2023-04-06 19:07] LABS: Calcium 7.3 mg/dL (7.8-10.44)
[2023-04-06 19:08] LABS: Globulin 2.7 g/dL (2.4-3.5); Protein, Total 5.3 g/dL (5.8-8.1)
[2023-04-06 19:09] LABS: Anion Gap 17 mmol/L (10-20); Bilirubin, Total 0.4 mg/dL (0.2-1.2); Carbon Dioxide 19 mmol/L (23-31)
[2023-04-06 19:10] LABS: Alkaline Phosphatase 80 U/L (40-110)
[2023-04-06 19:11] LABS: Calc. Creatinine Clearance 0 mL/min (70-130); Estimated GFR 100
[2023-04-06 19:12] LABS: BUN (Urea Nitrogen) 7 mg/dL (9.8-20.1)
[2023-04-06 19:13] LABS: ALT (SGPT) Less than 7 U/L (8-55); AST (SGOT) 13 U/L (5-34); Glucose 46 mg/dL (83-110)
[2023-04-06 19:14] LABS: CK (CPK) 169 U/L (29-168); Lipase 6 U/L (8-78)
[2023-04-06] MEDS ORDERED: Dextrose 50% Abboject 50 ML SYRINGE ONE ×2 (19:15→19:33)
== END 2023-04-06 21:05 ==
LOC: ERS 14:55
DX: E87.6 Hypokalemia (principal); R53.1 Weakness; R63.8 Other symptoms and signs concerning food and fluid intake; I10 Essential (primary) hypertension; K21.9 Gastro-esophageal reflux disease without esophagitis; F17.210 Nicotine dependence, cigarettes, uncomplicated; Z79.899 Other long term (current) drug therapy; Z79.82 Long term (current) use of aspirin
CPT/HCPCS: 36415; 36416; 51701; 71045; 81001; 82550; 82553; 83605; 83690; 83880; 84484; 85025; 87040; 93005; 96365; 96375; J3480; J7999